=== PATIENT | female | born 1960 | race Caucasian/White ===

== ENCOUNTER 2021-02-15 19:42 | Emergency (ER) | payer OTHER ==
[~2021-02-15] VITALS: Ht 162.6 cm; Wt 65.8 kg
--- NOTE | 2021-02-15 20:05 | NUR ---
Dr Marcus into eval patient.
[2021-02-15] MEDS ORDERED: POLY10DR3 RIGHTEYE (20:10)
[2021-02-15] MEDS ORDERED: KETO5DRO83 RIGHTEYE (20:10)
[2021-02-15 20:17] VITALS: BP 164/86
--- NOTE | 2021-02-15 20:17 | NUR ---
Patient discharged to home in stable condition. Written and verbal after care instructions given. Patient verbalizes understanding of instructions. Stressed follow up or return to ER for worsening s/s.
== END 2021-02-15 20:17 | disposition home or self-care (01) ==
LOC: ER 19:46
DX: H10.31 Unspecified acute conjunctivitis, right eye (principal); I16.0 Hypertensive urgency; F17.200 Nicotine dependence, unspecified, uncomplicated; E78.5 Hyperlipidemia, unspecified
CPT/HCPCS: A4663

== ENCOUNTER 2023-05-12 21:43 | Emergency (ER) | payer OTHER ==
[~2023-05-12] VITALS: Ht 165.1 cm; Wt 69.4 kg
[~2023-05-12 21:43] MED LIST: KETO5DRO83 RIGHTEYE; POLY10DR3 RIGHTEYE
--- NOTE | 2023-05-12 22:36 | NUR ---
Dr. Smith evaluating patient at bedside. MSE in progress.
--- NOTE | 2023-05-12 22:45 | NUR ---
Patient aox4, ambulatory, steady gait. Clear speech, no facial droop. No acute distress noted.
--- NOTE | 2023-05-12 22:59 | NUR ---
Patient taken to CT via ambulation accompanied by
[2023-05-13 01:00] VITALS: BP 155/85
== END 2023-05-13 01:01 | disposition home or self-care (01) ==
LOC: ER 21:43
DX: S09.90XA Unspecified injury of head, initial encounter (principal); M54.2 Cervicalgia; F17.210 Nicotine dependence, cigarettes, uncomplicated; Z71.6 Tobacco abuse counseling; Z79.899 Other long term (current) drug therapy; X58.XXXA Exposure to other specified factors, initial encounter; Y93.89 Activity, other specified; Y92.89 Other specified places as the place of occurrence of the external cause; Y99.8 Other external cause status
CPT/HCPCS: 70450; 72125; A4663